=== PATIENT | female | born 1955 | race Hispanic/Latino ===

== ENCOUNTER 2018-03-26 06:41 | Day surgery (SDC) | payer BC ==
[2018-03-26] MEDS ORDERED: NA CHLORIDE 0.9% 1,000 ML ONE ×3 (07:05→07:31)
[2018-03-26] MEDS ORDERED: MIDAZOLAM HCL 2 MG/2 ML INJ ONE (07:18)
[2018-03-26] MEDS ORDERED: PROPOFOL 200 MG/20 ML VIAL IV ONE (07:18)
[2018-03-26] MEDS ORDERED: LIDOCAINE 2% MPF 5 ML VIAL ONE (07:18)
[2018-03-26] MEDS ORDERED: GLYCOPYRROLATE 0.2 MG/ML SYR ONE (07:18)
[2018-03-26] MEDS ORDERED: FENTANYL CITR 100 MCG/2 ML ONE (07:20)
[2018-03-26] MEDS ORDERED: ROCURONIUM 50 MG/5 ML VIAL IV ONE (07:21)
[2018-03-26] MEDS ORDERED: BACITRACIN OINTMENT 15 GM TUBE TOP ONE (07:30)
[2018-03-26] MEDS: LIDOCAINE 1% W/EPI 1:100,000 MDV 50 ML VIAL ONE ×2 (08:03→08:05)
[2018-03-26] MEDS ORDERED: HYDROCODONE/APAP 5/325 MG TAB ONE (09:44)
[2018-03-26] MEDS ORDERED: IBUPROFEN 200 MG TAB PO ONE (09:44)
--- NOTE | 2018-03-26 21:52 | OP ---
Date of Procedure: 03/26/2018 Surgeon: Sania Sanders MD Preoperative Diagnoses: Postmenopausal bleeding, granulation at the apex of the vaginal scar from he r prolapse repair and urinary urgency. Postoperative Diagnoses: Postmenopausal bleeding, granulation at the apex of the vaginal scar from h er prolapse repair and urinary urgency. Procedures Performed: Cystoscopy, hysteroscopy, dilation and curettage, and revision of the vaginal scar and excision of granulation tissue with repair of the edges. Anesthesia: General. Specimens: Endometrial curettings. Complications: No complications. Drains: No drains. Condition: The patient's condition is stable. Findings: 1.Cystoscopy was done and there was no evidence of any erosion. 2.Hysteroscopy was performed. The cavity was empty and lining unremarkable. Curettings were very s cant. The endometrium appeared to be atrophic. On the vaginal scar at the anterior wall apex where the scar was started, there was a piece of granulation tissue that appeared to be a reaction to a per manent stitch and the stitch was excised. The edges were revised and brought together with the 2-0 V icryl in a mattress fashion x2 stitches. Indications: The patient is a 63-year-old, 1 year post anterior wall repair. Eight months later, dada jones presented with left lower quadrant pain, which was later found to be related to diverticulitis and resolved. Then, she started to have vaginal bleeding and this was evaluated with a transvaginal ultr asound. Endometrial lining appeared mostly unremarkable. However, there was a vaginal scar that barb eared to be around the apex of the vaginal scar as described above, so the source of bleeding was unk nown either endometrial or from the scar, so she also had onset of urgency and this was new as well. So, at this time, I decided to make sure that there was no erosion into the bladder with a cystoscop y, then we could treat her urgency, then secondly we could make sure that the uterus and endometrium was visualized and sampled and if there was no endometrial atypia or malignancy, then we could just l eave this alone and that removing the vaginal granulation tissue, possible stitch would prevent furth er episodes of bleeding. So, she was consented and brought to the hospital. Description Of Procedure: After general anesthesia was given, she was placed in a dorsal lithotomy p osition. Pelvic exam was performed. After noticing all the above, prep x3 with Betadine was done in the urethra, vagina, and vulva. Then, cystoscopy was performed with the 17-Georgian sheath, 30-degree lens and normal saline for distention medium. Cysto was negative. The base of the bladder trigone, dome, both lateral mahan were well visualized. No evidence of any lesions here. Normal jets of uri ne from both sides. The scope was removed, then went through to perform the hysteroscopy. Speculums were placed in the anterior and posterior aspect, the cervix was held with 2 Allis clamps. Then, the diagnostic hysteroscopy with a SlimLine hysteroscope, 30-degree lens normal saline. After entering the uterine cavity, the tubal ostia were visualized. Endometrium appeared to be unremarkab le. Scope pulled out. Curettings performed, handed out for permanent pathology. The granulation tissue was injected with 1% lidocaine mixed with 1:100,000 epinephrine 8 cc was used in a circumferential fashion around this. An elliptical incision was made with the help of a scalpel and then the stitch was excised. This appeared to be a permanent stitch, most likely the stitch jany isabelle to tack the midline aspect of the Uphold graft. Once this was removed completely, then the edges were revised and 2-0 Vicryl sutures were placed in a horizontal mattress fashion to bring the edges together. There were healthy edges. No evidence of any mesh exposure. Instrument, needle, and sponge counts were correct at the end of the case. EBL was minimal. The pat ient tolerated the procedure well. She was recovered from anesthesia in the OR and taken to the PACU in stable condition. TUCKER/CARTER Voice ID: [id number] Report ID: [id number]
== END 2018-03-26 10:26 | disposition home or self-care (01) ==
LOC: OR 06:41
PROVIDERS: ATTEND Obstetrics & Gynecology
PROC: 0TJB8ZZ Inspection of Bladder, Via Natural or Artificial Opening Endoscopic (ICD-10-PCS; 2018-03-26)
PROC: 0HBAXZZ Excision of Inguinal Skin, External Approach (ICD-10-PCS; 2018-03-26)
PROC: 0UDB7ZX Extraction of Endometrium, Via Natural or Artificial Opening, Diagnostic (ICD-10-PCS; principal; 2018-03-26 07:30)
PROC: 0UJD8ZZ Inspection of Uterus and Cervix, Via Natural or Artificial Opening Endoscopic (ICD-10-PCS; 2018-03-26 07:30)
DX: N95.0 Postmenopausal bleeding (principal); R39.15 Urgency of urination; A58 Granuloma inguinale; E11.9 Type 2 diabetes mellitus without complications; E03.9 Hypothyroidism, unspecified; M06.9 Rheumatoid arthritis, unspecified; Z88.0 Allergy status to penicillin; Z83.3 Family history of diabetes mellitus; Z82.49 Family history of ischemic heart disease and other diseases of the circulatory system
CPT/HCPCS: 82962; 88305; J2250; J2704; J3010; J7030

== ENCOUNTER 2019-05-14 05:59 | Inpatient (IN) | payer BC ==
--- NOTE | 2019-05-07 14:12 | RAD REPORT ---
EXAM DESCRIPTION: RAD - Chest Pa And Lat (2 Views) - 05/07/2019 2:07 pm CLINICAL HISTORY: preop Chest pain. COMPARISON: No comparisons FINDINGS: The lungs are clear. The heart is normal in size. No displaced fractures. IMPRESSION: No acute or concerning finding suspected.
[2019-05-07 15:10] LABS: Absolute Lymphocytes (CBC) 2.1 K/uL (0.7-4.9); Basophils % 0.8 % (0-1.3); Hematocrit 37.6 % (36.0-45.0); Lymphocytes % 29.1 % (15.3-44.8); MPV 9.4 fL (7.6-11.3); RBC Red Blood Cell Count 4.54 M/uL (3.86-4.86)
[2019-05-07 15:13] LABS: Protime INR 0.93
[2019-05-07 15:29] LABS: BUN Blood Urea Nitrogen 12 mg/dL (7-18); Bicarbonate 30 mmol/L (21-32); Glucose Level 104 mg/dL (74-106); Potassium 3.8 mmol/L (3.5-5.1); Sodium Level 143 mmol/L (136-145)
[~2019-05-14 05:59] MED LIST: CLINDAMYCIN INJ 600 MG in NA CHLORIDE 0.9% 50 ML IV SCH
[2019-05-14] MEDS ORDERED: Ringers Lactate 1,000 ML IV ONE ×2 (06:19→07:12)
[2019-05-14] MEDS ORDERED: LIDOCAINE 2% MPF 5 ML VIAL ONE ×2 (06:36→06:37)
[2019-05-14] MEDS ORDERED: MIDAZOLAM HCL 2 MG/2 ML INJ ONE (06:36)
[2019-05-14] MEDS ORDERED: propofoL 200 MG/20 ML VIAL IV ONE (06:36)
[2019-05-14] MEDS ORDERED: NS 0.9% VIAL 20 ML ONE (06:36)
[2019-05-14] MEDS ORDERED: FENTANYL CITR 100 MCG/2 ML ONE ×2 (06:36→09:16)
[2019-05-14] MEDS ORDERED: dexAMETHasone 10 MG/ML VIAL ONE (06:37)
[2019-05-14] MEDS ORDERED: BUPIVACAINE 0.25% PF 30 ML VIAL ONE (06:37)
[2019-05-14] MEDS ORDERED: TRANEXAMIC ACID 1,000 MG in NA CHLORIDE 0.9% 50 ML IV SCH (07:15)
[2019-05-14] MEDS ORDERED: KETAMINE HCL 500 MG/5 ML VIAL ONE (07:43)
[2019-05-14] MEDS ORDERED: HYDROMORPHONE HCL 1 MG/ML INJ ONE (07:47)
[2019-05-14] MEDS: BUPIVACA 0.5%/EPI 0.0005%/PF 30 ML VIAL ONE ×2 (08:27→09:45)
[2019-05-14] MEDS ORDERED: KETOROLAC 30 MG/ML INJ ONE (09:45)
[2019-05-14] MEDS ORDERED: DOCUSATE NA 100 MG CAP PO PRN (10:30)
[2019-05-14] MEDS ORDERED: ONDANSETRON 4 MG/2 ML VIAL IV PRN (10:30)
--- NOTE | 2019-05-14 10:30 | P.BOP ---
Preoperative diagnosis: left knee osteoarthritis Postoperative diagnosis: same Primary procedure: left total knee arthroplasty Quality Assurance Representative: NONE,NONE Estimated blood loss: 20 cc Specimen: left knee bone remnants Findings: see dictation Anesthesia: General Complications: None Drain(s): Urinary catheter Implants: BiometZimmer Persona 9 STD femur, F tibia, 10mm CR poly, 32 patella Fluids & blood products: per anesthesia record; TT: 96 mins @ 300 mmHg Transferred to: Recovery Room Condition: Good
[2019-05-14] MEDS ORDERED: TRAMADOL HCL 50 MG TAB PO PRN (10:34)
[2019-05-14 11:05] LABS: Hematocrit 36.2 % (36.0-45.0)
--- NOTE | 2019-05-14 11:10 | RAD REPORT ---
EXAM DESCRIPTION: RAD - Knee Left 2 View - 05/14/2019 10:49 am CLINICAL HISTORY: Left knee surgery FINDINGS: Postoperative changes of a left knee arthroplasty. Prosthesis is in good position. No fracture or dislocation.
[2019-05-14] MEDS: MORPHINE 2 MG/ML SYR IV PRN ×2 (13:25→18:28)
[2019-05-14 14:54] VITALS: BMI 26.6
[2019-05-14] MEDS: HYDROCODONE/APAP 7.5/325 MG TAB PO PRN (15:48)
[2019-05-14] MEDS: CLINDAMYCIN INJ 600 MG in NA CHLORIDE 0.9% 50 ML IV SCH (18:25)
[2019-05-14] MEDS: ATORVASTATIN 10 MG TAB PO SCH (20:58)
[2019-05-15] MEDS: CLINDAMYCIN INJ 600 MG in NA CHLORIDE 0.9% 50 ML IV SCH ×2 (00:33→09:05)
[2019-05-15] MEDS: HYDROCODONE/APAP 7.5/325 MG TAB PO PRN ×4 (00:40→21:10)
--- NOTE | 2019-05-15 02:16 | OP ---
Date of Procedure: 05/14/2019 Surgeon: Chinmay Enriquez MD Preoperative Diagnosis: Left knee osteoarthritis. Postoperative Diagnosis: Left knee osteoarthritis. Procedure Performed: Left total knee arthroplasty. Anesthesia: General. Fluids: Per Anesthesia record. Estimated Blood Loss: 20 mL. Tourniquet Time: 96 minutes at 300 mmHg. Implants: Biomet Isaiah Persona size 9 standard femur, size F tibia, size 10 mm CR poly, and a size 32 patella. Indication For Procedure: Ms. Vee is a 64-year-old female who presents to my clinic with signs and symptoms and x-ray findings consistent with severe left knee osteoarthritis. Patient failed conserv ative treatment measures including corticosteroid injections and home exercise program. I discussed with the patient and her family at length risks and benefits associated with operative and nonoperati ve treatment. They expressed understanding and elected to proceed with the operative treatment. Description Of Procedure: After informed consent was obtained, the patient was identified in the pre operative holding area. The left lower extremity was marked. The patient was then brought back to t PACU and underwent an adductor canal block to her left lower extremity. She was then brought back to the operating room, transferred to the operating table in the supine fashion, placed under genera l anesthesia. The left lower extremity was then prepped and draped in usual sterile fashion. A time -out was initiated. The correct patient and procedure were confirmed and identified. The patient di d receive her preoperative prophylactic antibiotics. The left lower extremity was exsanguinated usin g an Esmarch and the tourniquet was inflated to 300 mmHg. Approximately, a 15 cm longitudinal incisi on was made centered over the anterior knee in line with the patella over the center aspect of the in cision. Dissection was then taken down to the extensor mechanism and a medial parapatellar approach to the knee arthrotomy was performed. The patella was everted and dislocated laterally. The fat pad was excised as well as hypertrophic synovium just proximal of the distal femur. ACL, medial and lat eral meniscus were also excised. A medial soft tissue was then elevated off the proximal tibia for e xposure. Preoperatively, an MRI was taken to create bone cutting guides. They were placed on the en d of the distal femur and the pins were placed. The distal femoral cutting block was then placed and put into position and the distal femur was cut. The 4-in-1 cutting guide was then placed on the dis hugo end of the femur. Anterior and posterior cuts were made as well as anterior and posterior chamfe r cuts. Prior to the cuts being made, Mark wing was placed to ensure proper depth of the cuts. Nex t, the cutting guide was placed on the proximal tibia. Pins were placed. Alignment blaire was placed a nd there was overall good alignment with the tibial crest, as well as posterior slope. Once guide pi ns were placed, the proximal tibia cutting block was placed over the pins. Kinematic alignment guide was placed and there was overall good angles on the cuts. The proximal tibia was cut and osteotome was used to complete the cut near the insertion of the PCR to protect the PCL. The proximal tibial c utting bone remnants were then taken to the back table. There was some tightness laterally and the p osterolateral capsule was released as well as osteophytes being removed and the IT band was then pie crusted. A 10 mm spacer block was placed and there was better fit both in flexion and extension with good alignment. Next, size 9 standard femur, size F tibia, and 10 mm poly were then put in position . The knee was ranged, there was good overall stability in flexion and extension. The knee was able to come out in full extension. Patella was then evaluated. Osteophytes were then removed using a r ongeurs. Lateral release was performed using Bovie electrocautery. Size 32 patella was selected and patella was measured using the caliper and the proper depth was cut. Size 32 patella was then drill ed and patellar button was then placed and knee again was ranged, there was overall good stability of the patella with good track. The trial implants were then removed. The wound was then irrigated th oroughly with normal saline using pulse lavage, 30 mL of 0.5% Marcaine with epinephrine was then inje cted in posterior capsule, periosteum, as well as the quad tendons and tissues around surrounding the proximal tibia. The cement was prepared on the back table. Final instruments were then removed and placed on the back table. First, a size F tibia was placed on the proximal tibia after it had been punched and aligned. Excess cement was removed using Industry elevators. Cement was then placed on the distal femur and then a size 9 standard femur was placed. Excess cement was removed using Industry galdino vators. A trial 10 mm poly liner was then placed and the knee was held in extension as the cement cordova rdened. Excess cement was removed. Cement was then placed on the backside of the patella and the pa tellar button was placed. After the cement was completely hard, a final size [address] poly was place d and locked into position. The knee was again ranged and there was full range of motion. No instab ility noted. The wound was then again irrigated thoroughly with normal saline. Tourniquet was let d own. Hemostasis was achieved using Bovie electrocautery. Extensor mechanism was approximated using interrupted and a running #1 Vicryl. Deep fascia was approximated using 0 Vicryl. Subcutaneous tiss ue was approximated using a 2-0 Vicryl. Skin was approximated using db. Sterile dressings were applied. The patient was awakened and transferred to the PACU in stable condition. Postoperative Plan: Nanda will be admitted to the floor for medical management, pain control, and ph ysical therapy. YASIR/KAJALL Voice ID: [id number] Report ID: [id number]
[2019-05-15] MEDS: ENOXAPARIN 30 MG/0.3 ML SQ SCH ×2 (05:53→17:09)
[2019-05-15] MEDS: LEVOTHYROXINE SOD 0.075 MG TAB PO SCH (05:53)
[2019-05-15 06:05] LABS: Absolute Lymphocytes (CBC) 1.7 K/uL (0.7-4.9); Basophils % 0.1 % (0-1.3); Hematocrit 29.6 % (36.0-45.0); Lymphocytes % 13.4 % (15.3-44.8); MPV 8.3 fL (7.6-11.3); RBC Red Blood Cell Count 3.59 M/uL (3.86-4.86)
[2019-05-15 06:18] LABS: Potassium 3.8 mmol/L (3.5-5.1)
[2019-05-15] MEDS: MORPHINE 2 MG/ML SYR IV PRN (09:04)
[2019-05-15] MEDS: CELECOXIB 100 MG CAPSULE PO SCH (09:05)
--- NOTE | 2019-05-15 12:18 | P.PN ---
Subjective Date of Service: 05/15/19 Chief Complaint: s/p L TKA Subjective: Ambulating, Improving, Working w/ PT reports pain with the left knee as block wore off overnight Physical Examination - Vital Signs Temperature: 97.8 F Blood Pressure: 139/61 Pulse: 78 Respirations: 18 Pulse Ox (%): 98 - Physical Exam General: Alert, In no apparent distress Musculoskeletal: Other (LLE: dressing c/d/i; +EHL/FHL/GSC/TA; sensation grossly intact distally) - Studies Laboratory Data (last 24 hrs) 05/15/19 05:24: Sodium 142, Potassium 3.8, BUN 10, Creatinine 0.68, Glucose 110 H 05/15/19 05:24: WBC 13.0 H D, Hgb 9.9 L, Hct 29.6 L D, Plt Count 369 Assessment And Plan - Plan Nanda is a 64 yo female s/p L TKA POD#1 -PT to mobilize -continue to wean to orals for pain control -lovenox for DVT prophylaxis -d/c ardon -likely d/c home tomorrow with HHPT
[2019-05-15] MEDS: ATORVASTATIN 10 MG TAB PO SCH (21:10)
[2019-05-16] MEDS: ENOXAPARIN 30 MG/0.3 ML SQ SCH (05:41)
[2019-05-16] MEDS: LEVOTHYROXINE SOD 0.075 MG TAB PO SCH (05:41)
[2019-05-16] MEDS: HYDROCODONE/APAP 7.5/325 MG TAB PO PRN (05:42)
[2019-05-16 05:44] LABS: Absolute Lymphocytes (CBC) 1.6 K/uL (0.7-4.9); Basophils % 0.4 % (0-1.3); Hematocrit 31.6 % (36.0-45.0); Lymphocytes % 13.1 % (15.3-44.8); MPV 8.5 fL (7.6-11.3); RBC Red Blood Cell Count 3.84 M/uL (3.86-4.86)
[2019-05-16] MEDS: CELECOXIB 100 MG CAPSULE PO SCH (09:08)
[2019-05-16 09:33] VITALS: O2SAT 97
--- NOTE | 2019-05-16 09:53 | P.DS ---
Admission Date: 05/14/19 Discharge Date: 05/16/19 Disposition: DC HOME/HOME HEALTH CARE Discharge Condition: GOOD Reason for Admission: s/p L TKA Procedures: left total knee arthroplasty on 05/14/2019 Brief History of Present Illness: Nanda is a 64 yo female with history of OA admitted after left TKA on 05/14/2019 Hospital Course: Patient admitted to the floor in stable condition. PT was consulted and patient mobilized well with PT. Pain was also controlled while on the floor. Her vital signs remained stable and her H/H stabilized prior to discharge. She was given lovenox for DVT prophylaxis while admitted and will be discharged with Xarelto. She was discharged in stable condition on 05/16/2019. Vital Signs/Physical Exam: Temp Pulse Resp BP Pulse Ox 98.2 F 87 18 150/70 H 98 05/16/19 04:00 05/16/19 04:00 05/16/19 05:42 05/16/19 04:00 05/16/19 05:42 Laboratory Data at Discharge: WBC 12.0 K/uL (4.3-10.9) H 05/16/19 05:30 Hgb 10.4 g/dL (12.0-15.0) L 05/16/19 05:30 Hct 31.6 % (36.0-45.0) L 05/16/19 05:30 Plt Count 324 K/uL (152-406) 05/16/19 05:30 PT 11.0 SECONDS (9.5-12.5) 05/07/19 13:46 INR 0.93 05/07/19 13:46 APTT 32.9 SECONDS (24.3-36.9) 05/07/19 13:46 Sodium 142 mmol/L (136-145) 05/15/19 05:24 Potassium 3.8 mmol/L (3.5-5.1) 05/15/19 05:24 BUN 10 mg/dL (7-18) 05/15/19 05:24 Creatinine 0.68 mg/dL (0.55-1.3) 05/15/19 05:24 Glucose 110 mg/dL (74-106) H 05/15/19 05:24 Home Medications: Atorvastatin Calcium [Lipitor*] 10 mg PO BEDTIME 04/02/17 Levothyroxine [Synthroid*] 75 mcg PO [id number] 04/02/17 Alendronate Sodium 70 mg PO EVERY 7TH DAY 05/07/19 Hydrocodone 7.5/APAP 325 [[place] 7.5/325 mg*] 1 tab PO Q4H PRN tab 05/16/19 Patient Discharge Instructions: keep dressing clean, dry and intact; start Xarelto 05/17/2019 in the morning and take daily Diet: Regular Activity: Weight bearing as tolerated Followup: Chinmay Enriquez MD [ACTIVE - CAN ADMIT] - 1-2 Weeks
[2019-05-16 10:14] VITALS: BP 131/63; TEMP 97.5
== END 2019-05-16 10:58 | disposition home or self-care (01) | DRG 470 ==
LOC: OR 05:59 → 4TH 10:31
PROVIDERS: ADMIT Orthopaedic Surgery Sports Medicine; ATTEND Orthopaedic Surgery Sports Medicine
PROC: 0SRD0J9 Replacement of Left Knee Joint with Synthetic Substitute, Cemented, Open Approach (ICD-10-PCS; principal; 2019-05-14 07:30)
DX: M17.12 Unilateral primary osteoarthritis, left knee (principal); E11.65 Type 2 diabetes mellitus with hyperglycemia; I10 Essential (primary) hypertension
CPT/HCPCS: 36415; 71046; 80048; 85014; 85018; 85025; 85610; 85730; 88304; 88311; 93005; 97110; 97116; 97139; 97161; 97530; J1100; J1170; J1650; J2250; J2270; J2405; J2704; J3010; J7120

== ENCOUNTER 2020-10-06 09:00 | Inpatient (IN) | payer MEDICARE ==
--- NOTE | 2020-09-30 10:44 | RAD REPORT ---
EXAM DESCRIPTION: Adriana Davies (2 Views)09/30/2020 10:38 am CLINICAL HISTORY: Preop COMPARISON: 2019 FINDINGS: The lungs appear clear of acute infiltrate. The heart is normal size IMPRESSION: No acute abnormalities displayed
[2020-09-30 11:17] LABS: Absolute Lymphocytes (CBC) 1.6 K/uL (0.7-4.9); Basophils % 0.8 % (0-1.3); Hematocrit 41.7 % (36.0-45.0); Lymphocytes % 26.6 % (15.3-44.8); MPV 9.3 fL (7.6-11.3); RBC Red Blood Cell Count 4.99 M/uL (3.86-4.86)
[2020-09-30 11:26] LABS: Potassium 3.9 mmol/L (3.5-5.1)
[2020-09-30 12:32] LABS: Protime INR 0.87
[~2020-10-06 09:00] MED LIST changes: +CLINDAMYCIN INJ 600 MG in NA CHLORIDE 0.9% 50 ML IV ONE; -CLINDAMYCIN INJ 600 MG in NA CHLORIDE 0.9% 50 ML IV SCH; +MIDAZOLAM HCL 2 MG/2 ML INJ ONE
[2020-10-06] MEDS ORDERED: Ringers Lactate 1,000 ML IV ONE ×2 (09:32→13:40)
[2020-10-06] MEDS ORDERED: MIDAZOLAM HCL 2 MG/2 ML INJ ONE (10:23)
[2020-10-06] MEDS ORDERED: FENTANYL CITR 100 MCG/2 ML ONE ×2 (10:24→12:30)
[2020-10-06] MEDS ORDERED: BUPIVACAINE 0.25% PF 30 ML VIAL ONE (10:26)
[2020-10-06] MEDS ORDERED: NS 0.9% VIAL 10 ML ONE (10:35)
[2020-10-06] MEDS ORDERED: dexAMETHasone 10 MG/ML VIAL ONE (10:51)
[2020-10-06] MEDS ORDERED: ONDANSETRON 4 MG/2 ML VIAL ONE (11:17)
[2020-10-06] MEDS ORDERED: KETAMINE HCL 500 MG/5 ML VIAL ONE (11:17)
[2020-10-06] MEDS ORDERED: propofoL 200 MG/20 ML VIAL IV ONE (11:17)
[2020-10-06] MEDS ORDERED: LIDOCAINE 2% MPF 5 ML VIAL ONE (11:17)
[2020-10-06] MEDS ORDERED: HYDROMORPHONE HCL 1 MG/ML INJ ONE (11:22)
[2020-10-06] MEDS ORDERED: TRANEXAMIC ACID 1,000 MG in NA CHLORIDE 0.9% 50 ML IV SCH (12:00)
[2020-10-06] MEDS ORDERED: EPHEDRINE SULF 50 MG/ML VIAL ONE (12:09)
[2020-10-06] MEDS ORDERED: KETOROLAC 30 MG/ML INJ ONE (14:00)
[2020-10-06] MEDS ORDERED: ONDANSETRON 4 MG/2 ML VIAL IV PRN (14:41)
[2020-10-06] MEDS ORDERED: DOCUSATE NA 100 MG CAP PO PRN (14:41)
--- NOTE | 2020-10-06 14:41 | P.BOP ---
Preoperative diagnosis: right knee osteoarthritis Postoperative diagnosis: same Primary procedure: right total knee arthroplasty Circular Knife Machine Cutter: NONE,NONE Estimated blood loss: 20 cc Specimen: right knee bone remnants Findings: see dictation Anesthesia: General Complications: None Drain(s): Urinary catheter Implants: Biomet taj Persona 10 CR STD femur, F tibia, 32 patella, 13 MC poly Fluids & blood products: per anesthesia record; 93 mins @ 300 mmHg Transferred to: Recovery Room Condition: Good
[2020-10-06 15:28] LABS: Hematocrit 37.1 % (36.0-45.0)
--- OUTSIDE RECORDS SUMMARY | 2020-10-06 15:29 | XMS REPORT | Continuity of Care Document ---
:1955 Author Organization [facility] t Address [address] [place] [address] Care Team Providers Name Role Phone Unavailable Unavailable Unavailable Problems This patient has no known problems. Allergies, Adverse Reactions, Alerts This patient has no known allergies or adverse reactions. Medications This patient has no known medications. Procedures This patient has no known procedures. Encounters Start End Encounter Admission Attending Care Care Encounter Source Date/Time Date/Time Type Type Clinicians Facility Department ID 2020-10-01 2020-10-01 Outpatient [facility] [id number] [facility] 2020-08-03 2020-08-03 Outpatient [facility] [id number] [facility] 2020-03-16 2020-03-16 Outpatient [facility] [id number] [facility] 2020-03-08 2020-03-08 Outpatient [facility] [id number] [facility] Results This patient has no known results.
--- NOTE | 2020-10-06 15:32 | RAD REPORT ---
EXAM DESCRIPTION: RAD - Knee Right 2 View - 10/06/2020 3:09 pm CLINICAL HISTORY: Post Op COMPARISON: No comparisons FINDINGS: Postsurgical changes of a total knee arthroplasty are present. Midline skin db are no junito. Mild fluid and air seen in the joint space. No unexpected postoperative finding.
--- NOTE | 2020-10-06 16:20 | P.CNS ---
Date of Consult: 10/06/20 Reason for Consult: Medical Management Requesting Physician: Chinmay Enriquez Primary Care Provider: unknown Chief Complaint: Chronic right knee pain History of Present Illness: 65-year-old female with history of rheumatoid arthritis, hypothyroidism, hyperlipidemia. I was consulted for medical management. The patient has been seen by orthopedics as an outpatient for chronic right knee pain. Patient has failed conservative therapy. Surgical intervention was recommended. Patient had right total knee arthroplasty today. Patient doing well post operatively. No complaints noted home medications reviewed. Allergies Penicillins Allergy (Verified 09/30/20 10:00) Rash Home medications list reviewed: Yes Home Medications: Atorvastatin Calcium [Lipitor] 20 mg PO BEDTIME 09/30/20 Levothyroxine Sodium [Levothyroxine] 100 mcg PO DAILY 09/30/20 - Past Medical/Surgical History Diabetic: No -: Hypothyroidism -: Hyperlipidemia -: GERD -: Osteoarthritis -: Rheumatoid arthritis -: Total left knee replacement -: Back surgery Psychosocial/ Personal History: Patient is . Lives at home. - Family History Mother Medical History: Hypertension, Diabetes Father History Unknown: Yes Medical History: Other (see notes) Notes: high cholesterol - Social History Smoking Status: Never smoker Alcohol use: No CD- Drugs: No Caffeine use: Yes Place of Residence: Home Review of Systems General: As per HPI Eyes: Unremarkable ENT: Unremarkable Respiratory: Unremarkable Cardiovascular: Unremarkable Gastrointestinal: Unremarkable Genitourinary: Unremarkable Musculoskeletal: Leg Pain, As per HPI Neurological: Unremarkable Lymphatics: Unremarkable Physical Examination Temp Pulse Resp BP Pulse Ox 97 F 83 16 138/54 L 10/06/20 15:43 10/06/20 15:43 10/06/20 15:43 10/06/20 15:43 General: Alert, In no apparent distress, Oriented x3, Cooperative HEENT: Atraumatic, PERRLA, Mucous membr. moist/pink Neck: Supple Respiratory: Clear to auscultation bilaterally, Normal air movement Cardiovascular: Normal pulses, Regular rate/rhythm Gastrointestinal: Normal bowel sounds, No ascites, No tenderness, No masses, No rebound, No guarding Musculoskeletal: Other (Postoperative changes noted.) Integumentary: Other (Postop changes noted to the right knee) Neurological: Normal speech, Normal strength at 5/5 x4 extr, Normal tone, Normal affect Laboratory Data (last 24 hrs) 10/06/20 15:10: Hgb 12.5, Hct 37.1 Conclusions/Impression: Impression: Chronic right knee pain/osteoarthritis, failed outpatient therapy status post right total knee arthroplasty Hypothyroidism Hyperlipidemia Plan: Chronic right knee pain/osteoarthritis, failed outpatient therapy status post right total knee arthroplasty: Patient doing well post operatively. Will continue with pain medication. Options for mild, moderate and severe pain provided. Patient on DVT prophylaxis. Will discuss with orthopedics about the possibility of adjusting or changing to oral medication-Xarelto 10 mg daily tomorrow and continue for at least 14 days postoperatively. Physical therapy to evaluate and start tomorrow. Spoke with orthopedics earlier. Anticipate improvement over the next 2-3 days with likely discharge home with home health and physical therapy. Patient has had a prior left total knee replacement in April of 2019. Hypothyroidism: Continue medication Hyperlipidemia: Continue medication Time Spent Managing Pts care (In Minutes): 55
[2020-10-06 17:30] VITALS: BMI 27.4
[2020-10-06] MEDS: HYDROCODONE/APAP 7.5/325 MG TAB PO PRN ×2 (17:45→21:58)
[2020-10-06] MEDS: CLINDAMYCIN INJ 600 MG in NA CHLORIDE 0.9% 50 ML IV SCH (17:46)
--- NOTE | 2020-10-06 21:50 | P.OP ---
Preoperative diagnosis: right knee osteoarthritis Postoperative diagnosis: same Primary procedure: right total knee arthroplasty Anesthesia: general LMA Estimated blood loss: 20 cc Specimen: right knee bone remnants Findings: see dictation Operative Technique: Indication For Procedure: Nanda is a 65 year-old female presenting to my clinic with signs, symptoms and x-ray findings consistent with severe right knee osteoarthritis. I discussed with the patient at length risks and benefits associated with operative and nonoperative treatment. She had failed conservative treatment measures and had significant difficulties with ADLs secondary to her pain. We discussed operative treatment and elected to proceed with right total knee arthroplasty. She expressed understanding and elected to proceed with operative treatment. Description Of Procedure: After informed consent was obtained, the patient was identified in the preoperative holding area. The right lower extremity was marked. The patient was then taken to the PACU where she underwent a right lower extremity adductor canal block performed by Anesthesia. She was then taken to the operating room, transferred to the operating table in supine fashion, and placed under general anesthesia. Her right lower extremity was then prepped and draped in usual sterile fashion. A time-out was initiated. The correct patient and procedure were confirmed and identified. The patient did receive her preoperative prophylactic antibiotics. The right lower extremity was then exsanguinated and tourniquet was inflated to 300 mmHg. Approximately 15 cm longitudinal incision was made centered over the anterior aspect of the right knee. Dissection was then taken to the extensor mechanism and a medial parapatellar arthrotomy was performed. The patella was everted and dislocated laterally and the knee was flexed in the fat pad. Medial lateral meniscus and ACL were all excised exposing the distal femur. Excess hypertrophic synovium was also excised within the suprapatellar pouch. The patient had an MRI of her right knee preoperatively for surgical planning and creation of cutting blocks. The cutting block was then placed over the distal femur and pins were then placed. The distal femoral cutting block was then placed over the pins. Knee joint was then used to ensure proper depth cut and the distal femur was then cut. The chamfer cutting guide was then placed over the distal end of the femur. Anterior, posterior cuts as well as anterior and posterior chamfer cuts were then made again confirming proper depth of the cut using an Mark wing. Excess bone remnants were then sent to pathology for further evaluation. Next, attention was taken to the proximal tibia. A tibial jig and tibial cutting block was then placed on proximal aspect of the right tibia and locked into position. Pins were then placed and alignment guide was then used to confirm proper alignment of the cut and then coronal and sagittal planes. Once this was confirmed, the cutting jig was placed over the pins and the proximal tibia was cut. Sizing trays were then selected and size 12 mm spacer was used and there was good overall balance in flexion and extension. Next, the trial implants were then placed using the size 10 standard CR femur and a size F tibia with an 13 mm MC poly. There was overall good range of motion and good stability trial implants were then removed. There was some tightness laterally and the IT band was pie-crusted. This improved the overall stability of the knee and components. The wound was then irrigated thoroughly with normal saline and the knee was then injected with 30 cc of 0.5% Marcaine both in the posterior capsule and mediallateral gutters as well as quadriceps tendon and periosteum. The tibia was then punched. The femur was drilled. The cement was then prepared on the back table. Cement was then placed first on the tibial surface followed by size F tibia. Excess cement was removed with [place] elevators. Size 10 standard CR femur was then placed on the distal femur after cement was placed on the distal femur. Excess cement was then removed and a size 13 mm MC trial poly was then placed. The knee was held in extension as the cement hardened. Undersurface of the patella was prepared debriding osteophytes using rongeurs as well as osteophytes had been debrided off the proximal tibia with rongeurs and osteotomes to aid with the medial tightness. Cement was placed on the undersurface of the patella after it was cut and a size 32 patella was placed. Once the cement was hardened, the knee was ranged, there was good overall stability both in flexion, extension and as well as stability with varus and valgus stresses. Trial poly was then removed and a size 13 mm MC poly was then placed and locked into position. The knee was then ranged again. There was good overall range of motion both for flexion and extension with good stability. The wound was then irrigated again thoroughly with normal saline using pulse lavage. Tourniquet was let down. Hemostasis was achieved using Bovie electrocautery. Extensor mechanism was then approximated using a #1 Vicryl bothin interrupted and running fashion. The fascia was then approximated using 0 Vicryl. Subcutaneous tissue was approximated with a 2-0 Vicryl. Skin was approximated using db. Sterile dressings were applied. The patient was awakened and transferred back in stable condition Complications: None Drain(s): Urinary catheter Implants: Biomet Isaiah Persona, 10 CR STD femur, F tibia, 32 patella, 13 MC poly Fluids & blood products: per anesthesia record; TT: 118 mins @ 300 mmHg Transferred to: Recovery Room Condition: Good
[2020-10-06] MEDS: ATORVASTATIN 20 MG TAB PO SCH (21:58)
[2020-10-07] MEDS: HYDROCODONE/APAP 7.5/325 MG TAB PO PRN ×4 (04:07→17:27)
[2020-10-07] MEDS: LEVOTHYROXINE SOD 0.1 MG TAB PO SCH (05:16)
[2020-10-07 05:36] LABS: Hematocrit 35.3 % (36.0-45.0)
[2020-10-07] MEDS ORDERED: ENOXAPARIN 30 MG/0.3 ML SQ SCH (06:00)
[2020-10-07] MEDS ORDERED: MELATONIN 5 MG TABLET PO PRN (07:03)
--- NOTE | 2020-10-07 07:03 | P.PN ---
Subjective Date of Service: 10/07/20 Primary Care Provider: unknown Chief Complaint: Chronic right knee pain Subjective: Improving, Doing well Physical Examination - Vital Signs Temperature: 98.0 F Blood Pressure: 135/53 Pulse: 86 Respirations: 18 Pulse Ox (%): 94 - Studies Laboratory Data (last 24 hrs) 10/07/20 05:15: Hgb 11.6 L, Hct 35.3 L 10/06/20 15:10: Hgb 12.5, Hct 37.1 Assessment & Plan Discharge Plan: Home Plan to discharge in: 24 Hours Physician Review Additional Text: Physical Exam: GENERAL: The patient is a well-developed, well-nourished, in no apparent distress. Alert and oriented x3. VITAL SIGNS: Reviewed HEENT: Neck supple. LUNGS: Clear to auscultation. No crackles or wheezes are heard. HEART: Regular rate and rhythm, no appreciable gallops, rubs, murmurs or extra heart sounds ABDOMEN: Soft, nontender, and nondistended. Positive bowel sounds. No hepatosplenomegaly was noted. EXTREMITIES: Postop changes noted to the right lower extremity. NEUROLOGIC: The patient is oriented to person, place and time. Strength and sensation are grossly intact. Face is symmetric. SKIN: Normal color, turgor and temperature. No ulcerations or rashes noted. Impression: Chronic right knee pain/osteoarthritis, failed outpatient therapy status post right total knee arthroplasty Hypothyroidism Hyperlipidemia Plan: Chronic right knee pain/osteoarthritis, failed outpatient therapy status post right total knee arthroplasty: Patient doing well postoperatively. Medications reviewed. Continue with medication for pain. Spoke with orthopedics at length. Will transition to Xarelto 10 mg daily for DVT prophylaxis. Physical therapy to assess and ambulate. Social work consulted to help arrange for home health and physical therapy at discharge. Anticipate discharge likely tomorrow. Hypothyroidism: Continue medication Hyperlipidemia: Continue medication Time Spent Managing Pts care (In Minutes): 55 Code Status: Full Code DVT prophylaxis: Xarelto Advanced Care Planning-30 minutes: Plan of care for the patient's discharge was discussed in detail with the patient. Home health to be arranged along with physical therapy at discharge. Likely discharge tomorrow. Time Spent Managing Pts Care (In Minutes): 55
[2020-10-07] MEDS: CELECOXIB 100 MG CAPSULE PO SCH (08:09)
[2020-10-07] MEDS: RIVAROXABAN 10 MG TABLET PO SCH (08:09)
[2020-10-07] MEDS: CLINDAMYCIN INJ 600 MG in NA CHLORIDE 0.9% 50 ML IV SCH ×3 (08:36)
[2020-10-07] MEDS ORDERED: HOME MED 1 EA UNK (Levothyroxine Sodium [Levothyroxine] 100 MCG Capsule) PO SCH (09:00)
--- NOTE | 2020-10-07 13:12 | P.PN ---
Subjective Date of Service: 10/07/20 Primary Care Provider: unknown Chief Complaint: Chronic right knee pain Subjective: No C/O voiced, Working w/ PT pain controlled Physical Examination - Vital Signs Temperature: 99 F Blood Pressure: 126/53 Pulse: 81 Respirations: 18 Pulse Ox (%): 95 - Physical Exam General: Alert, In no apparent distress Musculoskeletal: Other (RLE: dressing c/d/i; +EHL/FHL/GSC/TA; sensation grossly intact distally) - Studies Laboratory Data (last 24 hrs) 10/07/20 05:15: Hgb 11.6 L, Hct 35.3 L 10/06/20 15:10: Hgb 12.5, Hct 37.1 Assessment And Plan - Plan Davion is a 65-year-old female status post right total knee arthroplasty POD #1 -Physical therapy will be consulted to work with patient; patient will be weightbearing as tolerated -Lovenox for DVT prophylaxis -Likely discharge tomorrow -Dr. Camacho for medical managment
[2020-10-07] MEDS: MORPHINE 2 MG/ML SYR IV PRN (13:39)
[2020-10-07] MEDS: ATORVASTATIN 20 MG TAB PO SCH (21:06)
[2020-10-07] MEDS: TRAMADOL HCL 50 MG TAB PO PRN (21:24)
[2020-10-07 22:19] VITALS: O2SAT 93
[2020-10-08] MEDS: HYDROCODONE/APAP 7.5/325 MG TAB PO PRN ×2 (00:12→11:59)
[2020-10-08] MEDS: LEVOTHYROXINE SOD 0.1 MG TAB PO SCH (05:39)
[2020-10-08] MEDS: TRAMADOL HCL 50 MG TAB PO PRN (05:39)
--- NOTE | 2020-10-08 06:41 | P.PN ---
Subjective Date of Service: 10/08/20 Primary Care Provider: unknown Chief Complaint: Chronic right knee pain Subjective: Doing well, Other (Patient has done well with physical therapy. Patient ready for discharge today.) Physical Examination - Vital Signs Temperature: 97.6 F Blood Pressure: 138/63 Pulse: 82 Respirations: 18 Pulse Ox (%): 94 Assessment & Plan Discharge Plan: Home Plan to discharge in: 24 Hours Physician Review Additional Text: Physical Exam: GENERAL: The patient is a well-developed, well-nourished, in no apparent distress. Alert and oriented x3. VITAL SIGNS: Reviewed HEENT: Neck supple. LUNGS: Clear to auscultation. No crackles or wheezes are heard. HEART: Regular rate and rhythm, no appreciable gallops, rubs, murmurs or extra heart sounds ABDOMEN: Soft, nontender, and nondistended. Positive bowel sounds. No hepatosplenomegaly was noted. EXTREMITIES: Postop changes noted to the right lower extremity. NEUROLOGIC: The patient is oriented to person, place and time. Strength and sensation are grossly intact. Face is symmetric. SKIN: Normal color, turgor and temperature. No ulcerations or rashes noted. Impression: Chronic right knee pain/osteoarthritis, failed outpatient therapy status post right total knee arthroplasty Hypothyroidism Hyperlipidemia Plan: Chronic right knee pain/osteoarthritis, failed outpatient therapy status post right total knee arthroplasty: Patient has done well postoperatively. Patient continues with physical therapy. Spoke with orthopedics at length today. Orthopedics plans to discharge patient today. Continue with home health and physical therapy. Continue with home medications. Patient will continue with Xarelto 10 mg for DVT prophylaxis at home. Agree with plan for discharge. Hypothyroidism: Continue medication Hyperlipidemia: Continue medication Time Spent Managing Pts care (In Minutes): 55 Code Status: Full Code DVT prophylaxis: Xarelto Advanced Care Planning-30 minutes: Spoke with orthopedics today. Patient to be discharged home. Continue with home health and physical therapy at discharge. Continue with home medications. Time Spent Managing Pts Care (In Minutes): 55
[2020-10-08] MEDS: RIVAROXABAN 10 MG TABLET PO SCH (08:36)
[2020-10-08] MEDS: CELECOXIB 100 MG CAPSULE PO SCH (08:37)
[2020-10-08] MEDS: MORPHINE 2 MG/ML SYR IV PRN (08:46)
--- NOTE | 2020-10-08 09:16 | P.DS ---
Admission Date: 10/06/20 Discharge Date: 10/08/20 Primary Care Provider: unknown Disposition: DC HOME/HOME HEALTH CARE Discharge Condition: GOOD Reason for Admission: Chronic right knee pain Consultations: Dr. Min Camacho, hospitalist Procedures: right total knee arthroplasty on 10/06/2020 Brief History of Present Illness: Nanda underwent right TKA on 10/06/2020 and was admitted to the floor postoperatively Hospital Course: Nanda was admitted postop in stable condition. Dr. Camacho was consulted for medical management. Her pain was controlled and her vitals remained stable during her hospital stay. She was placed on Xarelto for DVT prophylaxis and was discharged on 10/08/2020 in stable condition. Vital Signs/Physical Exam: Temp Pulse Resp BP Pulse Ox 97.6 F 82 16 138/63 93 10/08/20 08:40 10/08/20 08:40 10/08/20 08:46 10/08/20 08:40 10/08/20 08:46 Laboratory Data at Discharge: WBC 6.10 K/uL (4.3-10.9) 09/30/20 10:29 Hgb 11.6 g/dL (12.0-15.0) L 10/07/20 05:15 Hct 35.3 % (36.0-45.0) L 10/07/20 05:15 Plt Count 318 K/uL (152-406) 09/30/20 10:29 PT 10.4 SECONDS (9.2-12.8) 09/30/20 10:29 INR 0.87 09/30/20 10:29 APTT 27.0 SECONDS (21.7-34.4) 09/30/20 10:29 Sodium 143 mmol/L (136-145) 09/30/20 10:29 Potassium 3.9 mmol/L (3.5-5.1) 09/30/20 10:29 BUN 13 mg/dL (7-18) 09/30/20 10:29 Creatinine 0.70 mg/dL (0.55-1.3) 09/30/20 10:29 Glucose 109 mg/dL (74-106) H 09/30/20 10:29 Home Medications: Atorvastatin Calcium [Lipitor*] 20 mg PO BEDTIME 09/30/20 Levothyroxine Sodium [Levothyroxine] 100 mcg PO DAILY 09/30/20 Melatonin 10 mg PO BEDTIME PRN PRN 10/06/20 Hydrocodone 7.5/APAP 325 [[place] 7.5/325 mg*] 1 tab PO Q4H PRN tab 10/08/20 Rivaroxaban [Xarelto*] 10 mg PO DAILY tablet 10/08/20 Physician Discharge Instructions: keep dressing clean and dry; keep ALAN hose on for 2 weeks; begin Xarelto Sunday10/09/2020 in AM Diet: ADA Activity: Weight bearing as tolerated Followup: Chinmay Enriquez MD [ACTIVE - CAN ADMIT] - 1-2 Weeks
[2020-10-08 12:12] VITALS: BP 148/67; TEMP 98.2
== END 2020-10-08 12:54 | disposition home health service (06) | DRG 470 ==
LOC: OR 09:00 → 2ND 15:26
PROVIDERS: ADMIT Orthopaedic Surgery Sports Medicine; ATTEND Orthopaedic Surgery Sports Medicine
PROC: 0SRC0J9 Replacement of Right Knee Joint with Synthetic Substitute, Cemented, Open Approach (ICD-10-PCS; principal; 2020-10-06 10:30)
DX: M17.11 Unilateral primary osteoarthritis, right knee (principal); E78.5 Hyperlipidemia, unspecified; E11.9 Type 2 diabetes mellitus without complications; E03.9 Hypothyroidism, unspecified; K21.9 Gastro-esophageal reflux disease without esophagitis; I10 Essential (primary) hypertension; Z79.01 Long term (current) use of anticoagulants; Z79.899 Other long term (current) drug therapy; Z79.890 Hormone replacement therapy; Z89.612 Acquired absence of left leg above knee; Z88.0 Allergy status to penicillin; Z96.652 Presence of left artificial knee joint; Z20.822 Contact with and (suspected) exposure to COVID-19
CPT/HCPCS: 36415; 71046; 80048; 82947; 85014; 85018; 85025; 85610; 85730; 88304; 88305; 88311; 94010; 97110; 97116; 97139; 97161; J1100; J1170; J1650; J2250; J2270; J2405; J2704; J3010; J7120; U0002

== ENCOUNTER 2022-04-17 05:26 | Day surgery (SDC) | payer OTHER ==
[2022-04-13 13:39] LABS: Absolute Lymphocytes (CBC) 1.5 K/uL (0.7-4.9); Hematocrit 38.9 % (36.0-45.0); Lymphocytes % 24.6 % (15.3-44.8); MCV 83.9 fL (80-100); MPV 8.5 fL (7.6-11.3); RBC Red Blood Cell Count 4.64 M/uL (3.86-4.86)
[2022-04-17] MEDS ORDERED: Ringers Lactate 1,000 ML IV ONE ×2 (05:44→08:27)
[2022-04-17] MEDS ORDERED: CLINDAMYCIN 900MG/D5W 900 MG/50 ML IVPB IV ONE (05:44)
[2022-04-17] MEDS ORDERED: propofoL 200 MG/20 ML VIAL IV ONE ×4 (06:08→08:37)
[2022-04-17] MEDS ORDERED: ROCURONIUM 50 MG/5 ML VIAL IV ONE (06:08)
[2022-04-17] MEDS ORDERED: ONDANSETRON 4 MG/2 ML VIAL ONE (06:08)
[2022-04-17] MEDS ORDERED: dexAMETHasone 10 MG/ML VIAL ONE (06:08)
[2022-04-17] MEDS ORDERED: FENTANYL CITR 100 MCG/2 ML ONE (06:08)
[2022-04-17] MEDS ORDERED: MIDAZOLAM HCL 2 MG/2 ML INJ ONE (06:08)
[2022-04-17] MEDS ORDERED: KETOROLAC 30 MG/ML INJ ONE (06:08)
[2022-04-17] MEDS ORDERED: LIDOCAINE 2% MPF 5 ML VIAL ONE (06:08)
[2022-04-17] MEDS ORDERED: NS 0.9% VIAL 10 ML ONE (06:10)
[2022-04-17] MEDS ORDERED: Phenylephrine HCl 10 MG/ML 1 ML VIAL ONE (06:10)
[2022-04-17] MEDS ORDERED: THROMBIN 5000 UNITS/VIAL TOP ONE (06:27)
[2022-04-17] MEDS ORDERED: DEPO-MEDROL 40 MG/ML IM ONE (06:27)
[2022-04-17] MEDS ORDERED: SUCCINYLCHOLINE 20 MG/ML (10 ML) IV ONE (06:30)
[2022-04-17] MEDS ORDERED: LANO/MINERAL OIL/PETRO 3.5 GM ONE (07:11)
[2022-04-17 07:13] LABS: SARS-CoV-2 Antigen Rapid Res Negative (Negative)
[2022-04-17] MEDS ORDERED: TRANEXAMIC ACID 1,000 MG/10 ML VIAL IV ONE (07:40)
[2022-04-17] MEDS ORDERED: EPHEDRINE SULF 50 MG/ML VIAL ONE (08:22)
[2022-04-17] MEDS ORDERED: GLYCOPYRROLATE 0.2 MG/ML SYR ONE (08:44)
[2022-04-17] MEDS ORDERED: NEOSTIGMINE 1 MG/ML -5 ML ONE (08:56)
[2022-04-17 09:34] VITALS: TEMP 96.9
--- NOTE | 2022-04-17 10:02 | RAD REPORT ---
EXAM DESCRIPTION: RAD - Fluoroscopy <1 Hour - 04/17/2022 9:53 am FINDINGS: A single lateral portable C-arm view was submitted from spinal decompression procedure. Fluoro time was 0.1 minutes. Cumulative dose was 8.47 mGy.
[2022-04-17] MEDS ORDERED: HYDROCODONE/APAP 10/325 TAB ONE (10:14)
[2022-04-17 10:31] VITALS: O2SAT 97
[2022-04-17 11:06] VITALS: BP 114/2
== END 2022-04-17 11:20 | disposition home or self-care (01) ==
LOC: OR 05:26
PROVIDERS: ATTEND Orthopaedic Surgery
PROC: 00NY0ZZ Release Lumbar Spinal Cord, Open Approach (ICD-10-PCS; 2022-04-17)
PROC: 0SB20ZZ Excision of Lumbar Vertebral Disc, Open Approach (ICD-10-PCS; principal; 2022-04-17 06:30)
DX: M54.16 Radiculopathy, lumbar region (principal); M79.606 Pain in leg, unspecified; Z20.822 Contact with and (suspected) exposure to COVID-19
CPT/HCPCS: 63047; 63048; 69990; 85025; 80048; 36415 ×2; 87811; J2704 ×4; J0330; J2370; J2001; J2250; J3010; J1100; A4216; J2710; J7120 ×2; J2405; 76000; J1030